=== PATIENT | female | born 1975 | race Asian ===

== ENCOUNTER 2024-10-19 12:19 | Emergency (ER) | payer OTHER ==
[~2024-10-19] VITALS: Ht 157.5 cm; Wt 53.9 kg
[2024-10-19 13:13] LABS: BILIRUBIN,URINE NEGATIVE (Neg); CLARITY,URINE SLIGHTLY CLOUDY (Clear); COLOR,URINE YELLOW (Yellow); GLUCOSE, URINE NEGATIVE (Neg); KETONES,URINE 40 mg/dl (Neg); LEUKOCYTE ESTERASE ,URINE SMALL (Neg); NITRITES, URINE NEGATIVE (Neg); OCCULT BLOOD,URINE MODERATE (Neg); PROTEIN,URINE NEGATIVE (Neg); UROBILINOGEN,URINE 0.2 E.U/dL (0.2-1.0)
[2024-10-19 13:14] LABS: URINE HCG NEGATIVE (NEG)
[2024-10-19 13:17] LABS: BASOPHILS # (AUTO) 0.1 X10'3 (0-0.2); BASOPHILS % (AUTO) 0.6 % (0-1); EOSINOPHILS # (AUTO) 0.2 X10'3 (0-0.9); EOSINOPHILS % (AUTO) 1.7 % (0-6); HEMATOCRIT 37.5 % (35.0-45.0); HEMOGLOBIN 11.7 g/dl (12.0-16.0); LYMPHOCYTES # (AUTO) 1.4 X10'3 (1.1-4.8); LYMPHOCYTES % (AUTO) 14.5 % (21-51); MEAN CORPUSCULAR HEMOGLOBIN 20.3 PG (27.0-31.0); MEAN CORPUSCULAR HGB CONC 31.2 g/dL (33.0-36.5); MEAN CORPUSCULAR VOLUME 65.2 FL (78-98); MEAN PLATELET VOLUME 9.3 FL (7.4-10.4); MONOCYTES # (AUTO) 0.6 X10'3 (0-0.9); MONOCYTES % (AUTO) 6.7 % (2-12); NEUTROPHILS # (AUTO) 7.2 X10'3 (1.8-7.7); NEUTROPHILS % (AUTO) 76.5 % (42-75); PLATELET COUNT 283 X10'3 (140-440); RED BLOOD COUNT 5.75 X10'6 (4.20-5.60); RED CELL DISTRIBUTION WIDTH 15.1 % (11.5-14.5); WHITE BLOOD COUNT 9.4 X10'3 (4.5-11.0)
[2024-10-19 13:29] LABS: UA COLLECTION TYPE CLN CATCH MIDSTREAM
[2024-10-19 13:29] LABS: ALANINE AMINOTRANSFERASE 15 U/L (12-78); ALBUMIN 3.4 G/DL (3.4-5.0); ALBUMIN/GLOBULIN RATIO 0.7 (1.1-1.5); ALKALINE PHOSPHATASE 65 IU/L (46-116); ANION GAP 6 (8-16); ASPARTATE AMINO TRANSFERASE 17 U/L (10-37); BILIRUBIN,TOTAL 0.5 MG/DL (0.1-1.0); BLOOD UREA NITROGEN 9 MG/DL (7-18); BUN/CREATININE RATIO 17.6 (10.0-20.0); CALCIUM 8.5 MG/DL (8.5-10.1); CHLORIDE 103 MMOL/L (99-107); CREATININE 0.51 MG/DL (0.40-0.90); GLUCOSE 107 MG/DL (70-104); LIPASE 33 U/L (16-77); POTASSIUM 3.9 MMOL/L (3.5-5.1); SODIUM 135 MMOL/L (135-145); TOTAL CARBON DIOXIDE 26.2 MMOL/L (24-32); eCRCL 109 ML/MIN; eGFR > 90 ML/MIN
[2024-10-19 13:30] LABS: WBC,URINE 20-30 /HPF (0-4)
[2024-10-19 13:31] LABS: BACTERIA,URINE 1+ /HPF (Neg); MUCUS STRANDS FEW /LPF (Neg); RENAL CELLS, URINE FEW /HPF; SQUAMOUS EPITHELIAL CELL,UR MODERATE /LPF (FEW); TRANSITIONAL EPI CELLS,URINE FEW /HPF
[2024-10-19 14:38] LABS: MICROCYTOSIS 2+; PLATELET ESTIMATE NORMAL
[2024-10-19 14:39] LABS: ANISOCYTOSIS 1+; TARGET CELLS FEW; TEAR DROP CELLS FEW
[2024-10-19 14:40] LABS: HYPOCHROMASIA 1+
[2024-10-19] MEDS ORDERED: CEPH-585 PO (17:31)
[2024-10-19] MEDS: cephalexin 250mg capsule PO ONE (17:37)
[2024-10-19 17:41] VITALS: BP 131/87; PULSE 80; RESP 16; TEMP 98.2; O2SAT 100
== END 2024-10-19 17:42 | disposition home or self-care (01) ==
LOC: ER 12:20
DX: N12 Tubulo-interstitial nephritis, not specified as acute or chronic (principal)
CPT/HCPCS: 36415; 74176; 80053; 81001; 81025; 83690; 85008; 85025; 87088; 99284